=== PATIENT | female | born 1995 | race African-American/Black ===

== ENCOUNTER 2017-04-19 10:26 | Emergency (ER) | payer SELFPAY ==
[~2017-04-19] VITALS: Ht 170.2 cm; Wt 65.0 kg
[2017-04-19 10:28] VITALS: BP 128/77; PULSE 88; RESP 14; TEMP 99.1; O2SAT 100
--- NOTE | 2017-04-19 10:53 | PD ---
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 She has describes vague lower abdominal discomfort ongoing for about for 5 days. She also has some lumpy creamy vaginal discharge started yesterday. Last menstrual period was March 24. She has had one previous . She sexually active with women only, one female partner in the past 6 months. She states she has a normal appetite. No nausea or vomiting. Bowel habits been normal. No urinary symptoms. History Past Medical History Narrative Medical Asthma LMP: 03/28/17 Social History Alcohol Use: No Tobacco Use: Yes (1/4 pack a day ) Review of Systems Except as stated in HPI: all other systems reviewed are Neg Physical Exam Narrative GENERAL: Well-appearing 21-year-old woman, no acute distress. SKIN: Focused skin assessment warm/dry. NECK: Trachea midline. No JVD. CARDIOVASCULAR: Regular rate and rhythm. No murmur appreciated. RESPIRATORY: No accessory muscle use. Clear to auscultation. Breath sounds equal bilaterally. GASTROINTESTINAL: Abdomen flat soft. Mild lower abdominal tenderness. MUSCULOSKELETAL: No obvious deformities. No clubbing. No cyanosis. No edema. NEUROLOGICAL: Awake and alert. No obvious cranial nerve deficits. Motor grossly within normal limits. Normal speech. : Normal external female genitalia. There is a little bit of clumpy vaginal discharge. Little bit of cervical irritation. Minimal cervical motion and adnexal tenderness. No palpable uterine enlargement or adnexal masses. Data Data Last Documented VS Vital Signs Date Time Temp Pulse Resp B/P (MAP) Pulse Ox O2 Delivery O2 Flow Rate FiO2 04/19/17 10:28 99.1 88 14 128/77 (94) 100 Room Air Orders Orders Gc And Chlamydia Pcr (04/19/17 10:52) Wet Prep Profile (04/19/17 10:52) Urinalysis - C+S If Indicated (04/19/17 10:52) Ed Urine Pregnancytest Poc (04/19/17 10:52) Labs Laboratory Tests Test 04/19/17 11:10 Urine Color YELLOW Urine Turbidity CLEAR Urine pH 8.0 Urine Specific Sachse 1.021 Urine Protein NEG mg/dL Urine Glucose (UA) NEG mg/dL Urine Ketones NEG mg/dL Urine Occult Blood NEG Urine Nitrite NEG Urine Bilirubin NEG Urine Urobilinogen LESS THAN 2.0 MG/DL Urine Leukocyte Esterase NEG Urine RBC 1 /hpf Urine WBC LESS THAN 1 /hpf Urine Squamous Epithelial Cells 1 /hpf Urine Bacteria RARE /hpf Urine Mucus FEW /lpf Microscopic Urinalysis Comment CULT NOT INDICATED Clue Cells (Wet Prep) NONE SEEN Vaginal Trichomonas (Wet Prep) NONE SEEN Vaginal Yeast (Wet Prep) PRESENT MDM Medical Decision Making Medical Screen Exam Complete: Yes Emergency Medical Condition: Yes Interpretation(s) Wet prep, positive for yeast UA negative Differential Diagnosis Vaginitis, yeast infection, cervicitis, trichomoniasis, other Narrative Course Medical decision making 18-year-old woman with vague lower abdominal discomfort, lower stress that he is he sexually active with women only, vaginal discharge and some itching. Wet prep positive for yeast which is consistent with her exam. Vague abdominal discomfort is atypical. Will treat with fluconazole, outpatient follow-up. Diagnosis Primary Impression: Yeast vaginitis Patient Instructions: General Instructions Additional Instructions: Take fluconazole in 3 days if needed for persistent symptoms. 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 Med/Other Pt SpecificInfo: Prescription(s) given Scripts Fluconazole (Fluconazole) 150 Mg Tab 150 MG PO ONCE for Infection, #1 TAB 0 Refills Prov: Aleks Ruffin MD 04/19/17 Disposition: DISCHARGE HOME Condition: Stable Aleks Ruffin MD Apr 19, 2017 10:53
[2017-04-19 11:39] LABS: BACTERIA, URINE RARE /hpf; BILIRUBIN, URINE NEG (NEG); BLOOD, URINE NEG (NEG); GLUCOSE,URINE NEG (NEG); KETONE, URINE NEG (NEG); MUCUS URINE FEW /lpf (OCC); NITRITE,URINE NEG (NEG); SQUAMOUS EPITHELIAL CELL URINE 1 /hpf (0-5); URINE COLOR YELLOW (YELLW/STRAW); URINE LEUKOCYTE ESTERASE NEG (NEG)
[2017-04-19] MEDS ORDERED: FLUC150T PO (11:58)
[2017-04-19] MEDS ORDERED: FLUCONAZOLE 100 MG TAB PO ONE (12:00)
== END 2017-04-19 12:10 | disposition home or self-care (01) ==
LOC: NEPD 10:26
DX: B37.3 Candidiasis of vulva and vagina (principal); F17.210 Nicotine dependence, cigarettes, uncomplicated; J45.909 Unspecified asthma, uncomplicated
CPT/HCPCS: 81001; 84703; 87210; 87491; 87591; 99283